=== PATIENT | female | born 1965 | race Caucasian/White ===

== ENCOUNTER 2017-03-31 05:49 | Day surgery (SDC) | payer OTHER ==
[2017-03-31] MEDS ORDERED: PROPOFOL 60 ML (07:45)
[2017-03-31] MEDS ORDERED: LIDOCAINE 2% (SDV) 5 ML INJ (07:45)
== END 2017-03-31 09:33 | disposition home or self-care (01) ==
LOC: GIL 05:49
DX: Z12.11 Encounter for screening for malignant neoplasm of colon (principal); K29.70 Gastritis, unspecified, without bleeding; K64.8 Other hemorrhoids; E03.9 Hypothyroidism, unspecified
CPT/HCPCS: 43239; 87081

== ENCOUNTER 2017-11-15 08:47 | Day surgery (SDC) | payer OTHER ==
[2017-11-15 09:52] LABS: ADD MAN DIFF? NO
[2017-11-15 09:56] LABS: BASOPHILS % 0.4 % (0.0-2.0); EOSINOPHILS % 0.8 % (0.0-7.0); HEMATOCRIT 35.1 % (37.0-47.0); HEMOGLOBIN 11.9 g/dl (12.0-16.0); LYMPHOCYTES # 1.9 10^3/ul (0.8-2.9); LYMPHOCYTES % 38.5 % (15.0-51.0); MEAN CORPUSCULAR HEMOGLOBIN 28.5 pg (29.0-33.0); MEAN CORPUSCULAR HGB CONC 33.9 g/dl (32.0-37.0); MEAN PLATELET VOLUME 9.2 fl (7.4-10.4); MONOCYTE # 0.2 10^3/ul (0.3-0.9); MONOCYTES % 4.6 % (0.0-11.0); NEUTROPHIL # 2.7 10^3/ul (1.6-7.5); NEUTROPHILS % 55.5 % (39.0-77.0); PLATELET COUNT 193 10^3/UL (140-415); RED BLOOD COUNT 4.18 10^6/ul (4.20-5.40)
[2017-11-15 09:56] LABS: WHITE BLOOD COUNT 4.8 10^3/ul (4.8-10.8)
[2017-11-15 10:16] LABS: INR 0.84; PROTIME 11.6 Sec (11.9-14.9); PT RATIO 0.9
[2017-11-15 10:17] LABS: PARTIAL THROMBOPLASTIN TIME 27.6 Sec (23.0-35.0)
[2017-11-15 10:23] LABS: ALANINE AMINOTRANSFERASE 31 IU/L (13-69); ALBUMIN 3.6 g/dl (3.3-4.9); ALBUMIN/GLOBULIN RATIO 1.16; ALKALINE PHOSPHATASE 78 IU/L (42-121); ANION GAP 13 (8-16); ASPARTATE AMINO TRANSFERASE 25 IU/L (15-46); BILIRUBIN,INDIRECT 0.4 mg/dl (0-1.1); BILIRUBIN,TOTAL 0.4 mg/dl (0.2-1.3); BLOOD UREA NITROGEN 10 mg/dl (7-20); CALCIUM 9.6 mg/dl (8.4-10.2); CARBON DIOXIDE 26 mmol/L (21-31); CHLORIDE 109 mmol/L (97-110); CREATININE 0.67 mg/dl (0.44-1.00); GLUCOSE 106 mg/dl (70-220); SODIUM 144 mmol/L (135-144); TOTAL PROTEIN 6.7 g/dl (6.1-8.1)
[2017-11-15] MEDS ORDERED: MIDAZOLAM 1 MG/ML 2 ML INJ (11:53)
[2017-11-15] MEDS ORDERED: PROPOFOL 20 ML (11:53)
[2017-11-15] MEDS ORDERED: METOCLOPRAMIDE 10 MG INJ (11:54)
[2017-11-15] MEDS ORDERED: FENTAnyl 50 MCG/ML VIAL ×2 (11:54)
[2017-11-15] MEDS ORDERED: ONDANSETRON 4 MG INJ (11:54)
[2017-11-15] MEDS ORDERED: CEFAZOLIN 1 GM INJ (11:55)
[2017-11-15] MEDS ORDERED: ACETAMINOPHEN 1000MG/100ML IV 100 ML (11:55)
[2017-11-15] MEDS ORDERED: hydrALAzine 20 MG INJ IV (12:00)
[2017-11-15] MEDS ORDERED: DIPHENHYDRAMINE 50 MG INJ IV (12:00)
[2017-11-15] MEDS ORDERED: LABETALOL HCL 20MG INJ IV (12:00)
[2017-11-15] MEDS ORDERED: HYDROmorphONE 1 MG/5 ML IV SYRINGE IV ×3 (12:00)
[2017-11-15] MEDS ORDERED: MEPERIDINE 25 MG INJ IV (12:00)
[2017-11-15] MEDS ORDERED: ONDANSETRON 4 MG INJ IV (12:00)
[2017-11-15] MEDS ORDERED: OXYCODONE/ACETAMINOPHEN (5/325) TAB PO ×2 (12:00)
[2017-11-15] MEDS ORDERED: CIPROFLOXACIN 400MG/D5W 200 ML (12:01)
[2017-11-15] MEDS: IOHEXOL 300MG/ML 30 ML BTL (12:13)
[2017-11-15] MEDS ORDERED: EPHEDrine SULFATE 50 MG/5 ML SYG (12:20)
[2017-11-15] MEDS ORDERED: PHENYLephrine (100 MCG/ML) 5ML SYG ×2 (12:34→13:03)
[2017-11-15 13:07] LABS: ERYTHROCYTE SEDIMENTATION RATE 63 mm/Hr (0-30)
== END 2017-11-15 14:30 | disposition home or self-care (01) ==
LOC: SDS 08:47
DX: N20.0 Calculus of kidney (principal)
CPT/HCPCS: 52353; 80053; 85025; 85610; 85651; 85730